=== PATIENT | female | born 1935 | race Caucasian/White ===

== ENCOUNTER 2017-12-28 21:18 | Emergency (ER) | payer MEDICARE, OTHER, SELFPAY ==
[2017-12-28 21:22] VITALS: BP 122/70; PULSE 85; RESP 18; TEMP 36.8; O2SAT 95
--- NOTE | 2017-12-28 22:32 | ED_ITS ---
HPI - Skin/Abscess/Foreign Bdy General Chief complaint: Skin/Abscess/Foreign Body Stated complaint: thinks her left foot is infected Time Seen by Provider: 12/28/17 22:32 Source: patient Mode of arrival: ambulatory Limitations: no limitations History of Present Illness HPI narrative: The patient has peripheral neuropathy. She has had recurrent issues with both feet. She has required [facility] management of right foot infections previously. Two years ago she had surgery on the left foot. She has had recurring infections and ulcer since then. Her is currently tending to a healing ulcer on the plantar surface of the left 1st MTP area. To 3 days ago she developed redness and discomfort in the left 1st and 2nd toes. She has had recurring issues at this site. Today the redness and discomfort started to spread up to the distal and mid foot. She has had purulent discharge from the tip of the 2nd toe. She does not have significant pain. The erythema is in the mid foot, there is no streak running up the leg. She is not diabetic. She has chills but no fever. Related Data Home Medications Medication Instructions Recorded Confirmed amlodipine [Norvasc] PO QDAY #0 11/22/16 benzonatate [Tessalon Perles] 100 mg PO PRN #0 11/22/16 levothyroxine [Synthroid] PO QDAY #0 11/22/16 loratadine [Claritin Liqui-Gel] 10 mg PO QDAYP PRN #0 11/22/16 Previous Rx's Medication Instructions Recorded furosemide [Lasix] 20 mg PO QDAY 3 Days #0 tab 11/22/16 sulfamethoxazole-trimethoprim 1 tab PO Q12H #20 tab 12/29/17 [Bactrim DS] Allergies Allergy/AdvReac Type Severity Reaction Status Date / Time Penicillins [PENICILLINS] Allergy Unknown Unverified 09/23/17 12:27 Review of Systems Constitutional Reports chills and Denies fever(s) Cardiovascular Denies chest pain, Denies irregular heart rhythm, Denies lightheadedness, Denies palpitations, Denies dyspnea, Denies dyspnea on exertion and Denies orthopnea Respiratory Denies cough, Denies dyspnea, Denies dyspnea on exertion and Denies wheezing Gastrointestinal Gastrointestinal: Denies abdominal pain, Denies change in bowel habits, Denies diarrhea, Denies nausea and Denies vomiting Musculoskeletal Reports numbness and Denies tingling Integumentary/Breasts Reports as per HPI, Reports lesions and Reports erythema Neurologic Reports numbness, Denies tingling and Reports other (Peripheral neuropathy.) Endocrine Denies palpitations Allergic/Immunologic Denies wheezing [facility] Medical History Foot ulcer (Acute) Peripheral neuropathy (Acute) Exam Initial Vital Signs Initial Vital Signs: Vital Signs Temperature 98.2 F 12/28/17 21:22 Pulse Rate 85 12/28/17 21:22 Respiratory Rate 18 12/28/17 21:22 Blood Pressure 122/70 H 12/28/17 21:22 Pulse Oximetry 95 12/28/17 21:22 Const General: cooperative, healthy appearing and comfortable Resp Effort & Inspection: normal respiratory effort, able to speak in complete sentences, no respiratory distress and no use of accessory muscles Auscultation: clear to auscultation bilaterally, no rales, no rhonchi and no wheezes Cardio Rate: regular rate Rhythm: regular rhythm Heart Sounds: no click, no gallops, no murmurs and no rubs Pulses: normal peripheral pulses GI Inspection: non-distended Palpation: soft, no hepatosplenomegaly, No guarding, No pulsatile mass and No tender Auscultation: normal bowel sounds Skin General: no rashes or lesions noted (Other than the infected site on the left foot.) Neuro General: alert, awake, oriented x3 and other (Decreased light touch sensation) Extrem General: other (Erythema with warmth to the left 1st and 2nd toes, and up to the lateral midfoot. No lymphangitis. I was able to express pus from the tip of the 2nd toe. A small ulcer has formed there.) Other: The left dorsalis pedis pulse is intact. Capillary refill is intact in the left foot. Course Orders Ordered: ED Orders 12/28/17 22:44 XR foot LT min 3V Stat 12/28/17 23:30 Basic Metabolic Panel Stat Complete Blood Count AUTO DIFF Stat Lactate (Lactic Acid) Stat 12/28/17 23:43 Blood Culture Stat 12/29/17 02:44 Wound Culture and Gram Stain Stat Discontinued Medications Vancomycin HCl 1,500 mg/ (Sodium Chloride) 500 mls @ 333.333 mls/hr IV NOW ONE Stop: 12/28/17 22:47 Last Infusion: 12/29/17 02:15 Dose: 0 mls/hr Admin: 12/29/17 00:26 Dose: 333.333 mls/hr Vital Signs - 8 hr 12/28/17 21:22 12/29/17 00:53 12/29/17 03:23 Temperature 98.2 F Pulse Rate 85 70 73 Respiratory Rate 18 16 Blood Pressure 122/70 H Blood Pressure [Right Arm] 129/43 H 139/51 H Pulse Oximetry 95 97 MDM - Skin/Abscess/Foreign Bdy Medical Records Attestation: I reviewed the patient's medical records. Lab Data Attestation: I reviewed the patient's lab results. Result diagrams: 12/28/17 23:30 12/28/17 23:30 Lab Results 12/28/17 12/28/17 12/28/17 Range/Units 23:30 23:30 23:30 WBC 7.4 (4.5-11.0) X10^3/uL RBC 4.36 (4.0-5.2) X10^6/uL Hgb 13.0 (12.0-16.0) g/dL Hct 38.5 (36-46) % MCV 88.2 (80-100) fL MCH 29.8 (26-34) PG MCHC 33.8 (30-36) % RDW 14.8 (11.6-14.8) % Plt Count 250 (150-400) X10^3/uL Neut % (Auto) 65.7 (50-75) % Lymph % (Auto) 23.1 L (25-40) % [place] % (Auto) 8.6 (3-14) % Eos % (Auto) 2.3 (2-4) % Baso % (Auto) 0.3 (0-2) % Neut # (Auto) 4900 (6185-7542) /uL Sodium 139 (137-145) mmol/L Potassium 3.3 L (3.4-5.1) mmol/L Chloride 99 (98-107) mmol/L Carbon Dioxide 28 (22-32) mmol/L BUN 30 H (7-17) mg/dL Creatinine 1.20 H (0.52-1.04) mg/dL Estimated GFR 43.2 L (>60) mL/min BUN/Creatinine Ratio 25.0 H (6-22) Glucose 91 (80-110) mg/dL Lactate 0.9 (0.7-2.1) mmol/L Calcium 9.0 (8.4-10.2) mg/dL Imaging Data Left foot x-ray: My impression: The x-ray reveals hardware in the 1st metatarsal, and 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 There is no obvious bony injury. MDM Narrative Medical decision making narrative: The erythema and edema in the left foot is significantly better already. I have started her on Septra DS. Discharge Plan Departure Patient Disposition: Home, Self-Care Clinical Impression: Cellulitis of left foot Instructions: DI for Cellulitis -- Adult Activity Restrictions/Additional Instructions: Septra DS 2 times daily as prescribed. Apply warm soaks with Epsom salts to the foot 2 times daily until you have clearly improved. Return here if the foot is significantly worse. Prescriptions: New sulfamethoxazole-trimethoprim [Bactrim DS] 800-160 mg tablet 1 tab PO Q12H Qty: 20 RF: 0 No Action amlodipine [Norvasc] 2.5 mg Tablet PO QDAY Qty: 0 RF: 0 levothyroxine [Synthroid] 25 mcg Tablet PO QDAY Qty: 0 RF: 0 benzonatate [Tessalon Perles] 100 MG capsule 100 mg PO PRNQty: 0 RF: 0 loratadine [Claritin Liqui-Gel] 10 MG capsule 10 mg PO QDAYP PRNQty: 0 RF: 0 furosemide [Lasix] 20 MG tablet 20 mg PO QDAY 3 Days Qty: 0 RF: 0
--- NOTE | 2017-12-28 22:44 | DI.RAD.S_ITS ---
PROCEDURE: XR FOOT LT MIN 3V INDICATIONS: left foot/1st and 2nd toe cellulitis TECHNIQUE: 3 views of the foot were acquired. COMPARISON: [facility], CR, XR FOOT 3VW LT, 01/15/2017, 16:44. [facility], RG, FOOT COMP MIN 3VW (LT), 07/24/2017, 16:58. [facility] [place], CR, XR FOOT 1 OR 2 VIEWS LEFT, 07/30/2017, 13:32. [facility], CR, FOOT 3V LEFT, 11/10/2016, 14:30. FINDINGS: Bones: There is bunionectomy and fusion of the subtalar joint. Noon-acute fracture at the base of the fifth proximal phalanxis noted. No dislocations. No suspicious bony lesions. Generalized osteopenia. Soft tissues: No tibiotalar joint effusion. Achilles tendon appears normal. Soft tissue swelling. IMPRESSION: 1. No bony erosion. Early osteomyelitis may not radiographic findings. If clinical symptoms persist or clinical suspicion for pathology is high, a triple phase bone scan or MRI is suggested for further evaluation. 2. Non-acute fracture at the base of the fifth proximal phalanx. 3. Osteopenia. 4. Post surgical changes. Dictated by: Everett Zheng M.D. on 12/29/2017 at 9:17 Approved by: Everett Zheng M.D. on 12/29/2017 at 9:21
[2017-12-28 23:44] LABS: Add Manual Diff / Slide Review NO; Basophils Percent Auto 0.3 % (0-2); Eosinophils Percent Auto 2.3 % (2-4); Hematocrit 38.5 % (36-46); Lymphocytes Percent Auto 23.1 % (25-40); Mean Corpuscular HGB Conc 33.8 % (30-36); Mean Corpuscular Hemoglobin 29.8 PG (26-34); Mean Corpuscular Volume 88.2 fL (80-100); Monocytes Percent Auto 8.6 % (3-14); Neutrophils Absolute Auto 4900 /uL (3000-5900); Neutrophils Percent Auto 65.7 % (50-75); Platelet Count 250 X10^3/uL (150-400); Red Blood Cell Count 4.36 X10^6/uL (4.0-5.2); Red Cell Distribution Width 14.8 % (11.6-14.8); White Blood Cell Count 7.4 X10^3/uL (4.5-11.0)
[2017-12-28 23:53] LABS: Lactate (Lactic Acid) 0.9 mmol/L (0.7-2.1)
[2017-12-28 23:54] LABS: Blood Urea Nitrogen 30 mg/dL (7-17); Carbon Dioxide 28 mmol/L (22-32); Chloride 99 mmol/L (98-107); Estimated Glomerular Filt Rate 43.2 mL/min (>60); Glucose 91 mg/dL (80-110); HEMOLYSIS < 15 (0-50); Potassium 3.3 mmol/L (3.4-5.1); Sodium 139 mmol/L (137-145)
[2017-12-29] MEDS: VANCOMYCIN 1,500 MG in SODIUM CHLORIDE 0.9% 500 ML 333.333 ML IV (00:26)
[2017-12-29 00:53] VITALS: BP 129/43; PULSE 70; O2SAT 97
[2017-12-29 03:23] VITALS: BP 139/51; PULSE 73; RESP 16
[2017-12-29] MEDS: SULFA/TRIMETH 800/160 (DS) TABLET 1 TAB PO (04:50)
[2017-12-29 04:53] VITALS: BP 127/62; PULSE 66; RESP 18; TEMP 36.4; O2SAT 94
== END 2017-12-29 05:24 | disposition home or self-care (01) ==
PROVIDERS: Emergency Provider Emergency Medicine
DX: L03.116 Cellulitis of left lower limb (principal)
CPT/HCPCS: 36415; 73630; 80048; 83605; 85025; 87040; 87070; 87075; 87205; 96365; 96366; 99283; 99284

== ENCOUNTER 2018-05-06 09:47 | Emergency (ER) | payer MEDICARE, OTHER, SELFPAY ==
[2018-05-06 09:30] VITALS: BP 128/96; PULSE 72; PULSE 79; RESP 20; TEMP 36.6; O2SAT 98
--- NOTE | 2018-05-06 09:50 | ED_ITS ---
HPI - Extremity Problem General Chief complaint: Extremity Problem,Nontraumatic Stated complaint: Hip Pain - Fell in February Time Seen by Provider: 05/06/18 09:48 Source: patient Mode of arrival: EMS Limitations: no limitations History of Present Illness HPI Narrative: The patient is an 82-year-old female who fell several months ago. Did not come to the emergency department at that time because she did not think that she hurt herself. Since then has developed left hip pain. She has seen her primary care doctor was ordered x-rays. These are not available for my review bit patient stated that she was told that there were no fractures. She has also been evaluated by orthopedic spine who have ordered her an MRI of her lumbar spine and left hip. This is scheduled for next week. She states she has been taking Advil for her discomfort. She states that over the past several weeks and especially over the past couple days she has had an increase in the muscle spasms located in her left groin. She states she has no new pain compared to the past several weeks/months however the spasms have become more frequent and more intense. Related Data Home Medications Medication Instructions Recorded Confirmed amlodipine [Norvasc] PO QDAY #0 11/22/16 benzonatate [Tessalon Perles] 100 mg PO PRN #0 11/22/16 levothyroxine [Synthroid] PO QDAY #0 11/22/16 loratadine [Claritin Liqui-Gel] 10 mg PO QDAYP PRN #0 11/22/16 Previous Rx's Medication Instructions Recorded furosemide [Lasix] 20 mg PO QDAY 3 Days #0 tab 11/22/16 sulfamethoxazole-trimethoprim 1 tab PO Q12H #20 tab 12/29/17 [Bactrim DS] cyclobenzaprine 10 mg PO TID PRN #10 tab 05/06/18 hydrocodone-acetaminophen [[place]] 1 tab PO Q4-6H PRN #10 tab 05/06/18 nitrofurantoin monohyd/m-cryst 100 mg PO BID 5 Days #10 cap 05/06/18 [Macrobid] Allergies Allergy/AdvReac Type Severity Reaction Status Date / Time Penicillins [PENICILLINS] Allergy Unknown Verified 05/06/18 10:16 Review of Systems Constitutional Denies fever(s) ENT Ears, Nose, Mouth, and Throat: Denies dizziness Cardiovascular Denies chest pain and Denies dyspnea Respiratory Denies dyspnea Gastrointestinal Gastrointestinal: Denies abdominal pain Genitourinary Denies dysuria Musculoskeletal Reports back pain, Denies myalgias, Denies deformity and Reports arthralgias ( Left hip) Integumentary/Breasts Denies lesions and Denies rash Neurologic Denies confusion and Denies dizziness Psychiatric Denies confusion Hematologic/Lymphatic Denies easy bleeding and Denies easy bruising PFSH Medical History Foot ulcer (Acute) Peripheral neuropathy (Acute) Surgical History S/P lumbar fusion (Acute) Social History marital status: Exam Initial Vital Signs Initial Vital Signs: Vital Signs Temperature 97.9 F 05/06/18 09:30 Pulse Rate 72 05/06/18 09:30 Respiratory Rate 20 05/06/18 09:30 Blood Pressure 128/96 H 05/06/18 09:30 Pulse Oximetry 98 05/06/18 09:30 Const General: cooperative, well developed, well groomed and No acute distress HENMT Head: normal to inspection and normocephalic Resp Effort & Inspection: normal respiratory effort Auscultation: clear to auscultation bilaterally Cardio Rate: regular rate Rhythm: regular rhythm Skin Lesions: no lesions Rashes: no rashes Neuro General: alert, awake and oriented x3 Cognition: normal cognition Speech: speech normal Extrem General: normal to inspection and capillary refill normal Other: Left hip pain tenderness over the greater trochanter over the posterior aspect and over the anterior groin. Does have full range of motion however with flexion of the hip does cause a spasm in the groin. No left knee low left ankle symptoms. Psych Appearance: grossly normal and well kempt Course Orders Ordered: ED Orders 05/06/18 10:45 Urine Culture Stat Urine Microscopic Stat Discontinued Medications Diazepam (Valium) 5 mg PO NOW ONE Stop: 05/06/18 10:09 Last Admin: 05/06/18 10:20 Dose: 5 mg Ketorolac Tromethamine (Toradol) 30 mg IM NOW ONE Stop: 05/06/18 10:09 Last Admin: 05/06/18 10:20 Dose: 30 mg Vital Signs - 8 hr 05/06/18 09:30 05/06/18 11:09 Temperature 97.9 F Pulse Rate 79 69 Pulse Rate [Left Dorsalis Pedis] 72 Respiratory Rate 20 14 Blood Pressure 128/96 H Blood Pressure [Left Arm] 120/55 L Pulse Oximetry 98 100 MDM - Extremity (Nontraumatic) Lab Data Attestation: I reviewed the patient's lab results. Lab Results 05/06/18 Range/Units 10:45 Urine RBC 1-5/hpf (0-5/HPF) Urine WBC 30-100/hpf H (0-5/HPF) Ur Squamous Epith Cells 1-5 /hpf Urine Bacteria Many (>30) H (None) Ur Culture Indicated? Specimen cultured Micro UA Comment Not Reportable Urine Dip Bedside Urine Glucose Negative Bedside Urine Bilirubin - Negative Bedside Urine Ketone - Negative Urine Specific [place] 1.030 Bedside Urine Occult Blood +/- Bedside Urine pH 6.0 Bedside Urine Protein +/- 15 Bedside Urine Urobilinogen - Negative Bedside Urine Nitrite + Positive Bedside Urine Leukocytes +++ 500 Esterase MDM Narrative Medical decision making narrative: Patient does have a nitrite positive urine and states that recently she has had some urinary hesitancy but no burning. No fevers. Will treat with antibiotics. Informed the patient that there was a culture pending. Patient does report some improvement of the muscle spasms in her left hip. She has no new trauma and has had x-rays of her hip in the past. I have low suspicion for new fractures. Will hold on radiologic studies. Will send home with some pain medication and muscle relaxers. She does have a walker at home. Informed her that she needs to be careful about ambulating to avoid falling. With her and her expressed understanding and agreement this plan Discharge Plan Departure Patient Disposition: Home Clinical Impression: UTI (urinary tract infection), Hip pain, left Instructions: DI for Urinary Tract Infection (UTI), How To Perform RICE (Rest, Ice, Compress, Elevate), How to Prevent Falls Activity Restrictions/Additional Instructions: Recommend that you keep all of your scheduled medical appointments to include the MRIs that you have scheduled next week. Take the medication like we discussed. You need to be careful at home to avoid falling. No driving for the next 24 hr. Return to the emergency department for any new or worsening symptoms Prescriptions: New cyclobenzaprine 10 mg tablet 10 mg PO TID PRN (Reason: muscle spasm) Qty: 10 RF: 0 hydrocodone-acetaminophen [[place]] 5-325 mg tablet 1 tab PO Q4-6H PRN (Reason: pain) Qty: 10 RF: 0 nitrofurantoin monohyd/m-cryst [Macrobid] 100 mg capsule 100 mg PO BID 5 Days Qty: 10 RF: 0 No Action amlodipine [Norvasc] 2.5 mg Tablet PO QDAY Qty: 0 RF: 0 levothyroxine [Synthroid] 25 mcg Tablet PO QDAY Qty: 0 RF: 0 benzonatate [Tessalon Perles] 100 MG capsule 100 mg PO PRNQty: 0 RF: 0 loratadine [Claritin Liqui-Gel] 10 MG capsule 10 mg PO QDAYP PRNQty: 0 RF: 0 furosemide [Lasix] 20 MG tablet 20 mg PO QDAY 3 Days Qty: 0 RF: 0 sulfamethoxazole-trimethoprim [Bactrim DS] 800-160 mg tablet 1 tab PO Q12H Qty: 20 RF: 0
[2018-05-06] MEDS: diazePAM 5 MG TABLET PO (10:20)
[2018-05-06] MEDS: KETOROLAC 60 MG/2 ML VIAL 30 MG IM (10:20)
[2018-05-06 11:05] LABS: Bacteria Urine Many (>30); RBC Urine 1-5/HPF (0-5/HPF); Squamous Epithelial Cell Urine 1-5 /HPF; WBC Urine 30-100/HPF (0-5/HPF)
[2018-05-06 11:06] LABS: Culture Indicated Urine Specimen Cultured
[2018-05-06 11:09] VITALS: BP 120/55; PULSE 69; RESP 14; O2SAT 100
[2018-05-06 11:30] VITALS: BP 116/67; PULSE 77; RESP 20; O2SAT 96
[2018-05-06 11:42] VITALS: BP 116/67; PULSE 77; RESP 20; O2SAT 96
== END 2018-05-06 11:49 | disposition home or self-care (01) ==
PROVIDERS: Emergency Provider Emergency Medicine; PCP Specialist
DX: N39.0 Urinary tract infection, site not specified (principal); M25.552 Pain in left hip
CPT/HCPCS: 81003; 81015; 87077; 87086; 87186; 96372; 99283; J1885

== ENCOUNTER → 2018-05-12 13:08 | Outpatient (CLI) | payer MEDICARE, OTHER, SELFPAY ==
--- NOTE | 2018-05-12 | DI.MRI.S_ITS ---
PROCEDURE: MR HIP LT WO CON INDICATIONS: RADICULOPATHY LUMBAR REGION TECHNIQUE: Noncontrast coronal T1 spin echo and STIR through the bony pelvis. Coronal and axial T2 fast spin echo with fat saturation, sagittal T1 spin echo, and oblique axial T2 fast spin echo with fat saturation through the hip. COMPARISON: [facility], MR, MR LUMBAR SPINE WO/W CON, 05/12/2018, 14:03. FINDINGS: Image quality: Excellent. Bones and joints: Bone marrow of the pelvic ring and proximal femurs show normal signal throughout. No intraosseous lesions or fractures. No avascular necrosis of the femoral heads. Lower lumbar degenerative disc disease and spinal fixation hardware artifact Tendons and ligaments: The gluteus medius and minimus tendons appear intact, without associated muscle atrophy. The nearby proximal iliotibial band also appears intact. The iliopsoas tendon appears intact, without adjacent bursal fluid collections or evidence for impingement syndrome. The origin of the hamstring tendon is intact at the ischial tuberosity, as well as the associated sacrotuberous ligament. The straight and reflected heads of the rectus femoris muscle origin appear intact, as well as the conjoint tendon. The ligamentum teres appears intact where visualized. Labrum and cartilage: The acetabular labrum appears intact in the absence of intra-articular contrast. Cartilage surface of the femoral head appears of normal thickness. The alpha angle of the femur is within normal limits at less than 55 degrees. High-grade probably partial rupture of the left iliopsoas musculotendinous junction. Prominent appearance of stump/retracted fibers is seen at the level of the femoral head, image 24 series 3. There are some intact fibers seen at the insertion at the lesser trochanter although intrasubstance signal change and adjacent soft tissue edema is present. There is also marked diffuse edema and irregularity of the visualized left iliacas muscle. IMPRESSION: Severe, diffuse edema throughout the left iliopsoas muscle, with high-grade partial rupture at the musculotendinous junction. Dictated by: Akhil Holcomb M.D. on 05/12/2018 at 15:51 Approved by: Akhil Holcomb M.D. on 05/12/2018 at 16:01
--- NOTE | 2018-05-12 | DI.MRI.S_ITS ---
PROCEDURE: MR LUMBAR SPINE WO/W CON INDICATIONS: RADICULOPATHY LUMBAR REGION TECHNIQUE: Noncontrast sagittal T1 spin echo and T2 fast spin echo, sagittal STIR, axial T1 and T2 fast spin echo through the lumbar spine. In cases with scoliosis, additional coronal T2 fast spin echo may be performed. After the administration of contrast, sagittal and axial T1 spin echo with fat saturation through the lumbar spine. COMPARISON: [facility], , L-SPINE W&WO CONTRAST, 09/29/2013, 12:46. FINDINGS: Image quality: Excellent. Alignment and curvature: Posterior fusion from L3-L5 is noted. There is levoconvex scoliotic curvature with apex at L2-3. There is trace retrolisthesis of L1 on L2, grade retrolisthesis of L2 on L3, trace anterolisthesis of L4 on L5 and trace retrolisthesis of L5 on S1. Marrow: Marrow is of normal overall signal. No acute vertebral body compression fractures. No suspicious marrow enhancement. Spinal cord: Conus medullaris terminates at the L2 level. Visualized spinal cord demonstrates normal signal, without suspicious enhancement. Paraspinous soft tissues: No paravertebral masses or abnormal enhancement. Hepatic focus of increased T2 signal within the posterior right hepatic lobe suggestive of cyst is again noted. There is mildly increased in size currently measuring 21 mm x 16 mm. It previously measured 19 x 13 mm. Discs: Severe desiccation is present throughout the lumbar spine. T12-L1: Mild disc bulge with moderate to severe spinal stenosis. There is severe bilateral foraminal narrowing with facet and ligamentum flavum hypertrophy. Mild interval progression. L1-L2: Mild disc bulge with mild to moderate spinal stenosis. There is mild epidural lipomatosis. Prominent facet and ligamentum flavum hypertrophy are present. There is moderate to severe left and severe right foraminal narrowing, slightly progressive. Facet and ligamentum flavum hypertrophy are present. L2-L3: Mild disc bulge with moderate to severe spinal stenosis, unchanged. There is severe bilateral foraminal narrowing, progressive compared to prior exam with facet and ligamentum flavum hypertrophy. L3-L4: Postsurgical changes are present. There is no spinal stenosis. Posterior surgical defect with fluid is present without interval change. This likely represents a postoperative seroma. There is a dependent clumped appearance of the nerve roots, and new compared to prior exam. There is moderate to severe bilateral foraminal narrowing, slightly progressive with facet and ligamentum flavum hypertrophy. L4-L5: Postsurgical changes are present. There is a flattened appearance of the nerve roots in a peripheral dependent location, new compared to prior exam. Moderate to severe left and moderate right foraminal narrowing is present demonstrating interval progression. L5-S1: Postsurgical changes are present. There is a flattened appearance of the nerve roots in a peripheral dependent location, new compared to prior exam. There is severe left and moderate to severe right foraminal narrowing with facet and ligamentum flavum hypertrophy. IMPRESSION: 1. Postoperative changes as above. 2. Interval appearance of flattened dependent appearance of clumped nerve roots within the lower lumbar spine as above. 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 3. Multilevel foraminal narrowing secondary to scoliotic curvature as well as facet/ligamentum flavum arthropathy. 4. Multilevel degenerative changes are present with areas demonstrating interval progression as above. Dictated by: Inna Galloway M.D. on 05/12/2018 at 16:54 Approved by: Inna Galloway M.D. on 05/12/2018 at 17:04
== END ==
PROVIDERS: PCP Specialist; Visit Provider Orthopaedic Surgery
DX: M51.16 Intervertebral disc disorders with radiculopathy, lumbar region (principal); R60.0 Localized edema; M48.061 Spinal stenosis, lumbar region without neurogenic claudication; M48.07 Spinal stenosis, lumbosacral region; M41.86 Other forms of scoliosis, lumbar region; Z98.1 Arthrodesis status
CPT/HCPCS: 72158; 73721; A9579

== ENCOUNTER 2018-09-18 12:21 | Emergency (ER) | payer MEDICARE, OTHER, SELFPAY ==
[2018-09-18 12:32] VITALS: BP 151/97; PULSE 78; RESP 14; TEMP 36.4; O2SAT 98
--- NOTE | 2018-09-18 12:42 | DI.RAD.S_ITS ---
PROCEDURE: XR FOOT LT MIN 3V INDICATIONS: atraumatic foot pain TECHNIQUE: 3 views of the foot were acquired. COMPARISON: None. FINDINGS: Bones: Plate-screw fixation of the calcaneus and screw fixation of the first metatarsal. Hardware appears intact. There is expected postoperative alignment. Diffuse hindfoot and mid foot degenerative changes. Diffuse interphalangeal joint degeneration. No definite acute fracture seen Soft tissues: No tibiotalar joint effusion. Achilles tendon appears normal. IMPRESSION: No definite acute fracture. Postoperative changes as above. Dictated by: Akhil Holcomb M.D. on 09/18/2018 at 14:01 Approved by: Akhil Holcomb M.D. on 09/18/2018 at 14:03
[2018-09-18 13:02] LABS: Add Manual Diff / Slide Review NO; Basophils Absolute Auto 100 /uL (0-100); Basophils Percent Auto 0.9 % (0-2); Eosinophils Absolute Auto 200 /uL (0-450); Eosinophils Percent Auto 2.2 % (2-4); Hematocrit 41.8 % (36-46); Hemoglobin 13.6 g/dL (12.0-16.0); Lymphocytes Absolute Auto 1600 /uL (1100-4500); Mean Corpuscular HGB Conc 32.6 % (30-36); Mean Corpuscular Hemoglobin 27.9 PG (26-34); Mean Corpuscular Volume 85.6 fL (80-100); Monocytes Absolute Auto 700 /uL (0-900); Monocytes Percent Auto 7.5 % (3-14); Neutrophils Absolute Auto 6200 /uL (1500-7000); Neutrophils Percent Auto 71.4 % (50-75); Platelet Count 295 X10^3/uL (150-400); Red Blood Cell Count 4.88 X10^6/uL (4.0-5.2); Red Cell Distribution Width 15.7 % (11.6-14.8); White Blood Cell Count 8.7 X10^3/uL (4.5-11.0)
[2018-09-18 13:15] LABS: Alanine Aminotransferase 28 IU/L (9-52); Albumin 4.3 g/dL (3.5-5.0); Albumin Globulin Ratio 1.5 (1.0-2.8); Alkaline Phosphatase 99 U/L (38-126); Aspartate Aminotransferase 23 IU/L (14-36); BUN Creatinine Ratio 22.5 (6-22); Bilirubin Total 0.5 mg/dL (0.2-1.3); Blood Urea Nitrogen 18 mg/dL (7-17); Carbon Dioxide 31 mmol/L (22-32); Chloride 100 mmol/L (98-107); Estimated Glomerular Filt Rate > 60.0 mL/min (>60); Globulin 2.8 g/dL (1.7-4.1); Glucose 95 mg/dL (80-110); HEMOLYSIS < 15 (0-50); Potassium 3.8 mmol/L (3.4-5.1); Sodium 139 mmol/L (137-145); Total Protein 7.1 g/dL (6.3-8.2); Uric Acid 6.6 mg/dL (2.5-6.2)
[2018-09-18 15:11] VITALS: BP 147/85; PULSE 73; O2SAT 100
--- NOTE | 2018-09-18 15:21 | ED_ITS ---
HPI - Extremity Problem <OSCAR Gillette - Last Filed: 09/18/18 15:24> General Chief complaint: Extremity Problem,Nontraumatic Stated complaint: Broken toe Big Toe LT Time Seen by Provider: 09/18/18 14:25 Source: patient and family Mode of arrival: ambulatory Limitations: no limitations History of Present Illness HPI Narrative: Patient is an 82-year-old female nonsmoker who presents with her for chief complaint of left great toe pain and redness. She states it started overnight. She has no fevers nausea vomiting. she states that she has not had any trauma to the area falls or otherwise. She states she has broken that toe previously. She states the number for other toes hurt. She states that it hurts mostly at the base of the left great toe. Related Data Home Medications Medication Instructions Recorded Confirmed amlodipine [Norvasc] PO QDAY #0 11/22/16 benzonatate [Tessalon Perles] 100 mg PO PRN #0 11/22/16 levothyroxine [Synthroid] PO QDAY #0 11/22/16 loratadine [Claritin Liqui-Gel] 10 mg PO QDAYP PRN #0 11/22/16 Previous Rx's Medication Instructions Recorded furosemide [Lasix] 20 mg PO QDAY 3 Days #0 tab 11/22/16 sulfamethoxazole-trimethoprim 1 tab PO Q12H #20 tab 12/29/17 [Bactrim DS] cyclobenzaprine 10 mg PO TID PRN #10 tab 05/06/18 hydrocodone-acetaminophen [Saxton] 1 tab PO Q4-6H PRN #10 tab 05/06/18 colchicine See Rx Instructions .ROUTE 09/18/18 .COMPLEX #3 cap naproxen 500 mg PO BID PRN #20 tab 09/18/18 Allergies Allergy/AdvReac Type Severity Reaction Status Date / Time Penicillins [PENICILLINS] Allergy Unknown Verified 05/06/18 10:16 Review of Systems <OSCAR Gillette - Last Filed: 09/18/18 15:24> Review of Systems GENERAL: Denies chills, fatigue, malaise, fever, sweats. HEENT: Denies sinus pain, ear pain, sore throat, difficulty swallowing, dizziness. RESPIRATORY: Denies dyspnea, cough, wheezing, hemoptysis, sputum. CARDIOVASCULAR: Denies chest pain, palpitations, orthopnea, edema, GASTROINTESTINAL: Denies nausea, vomiting, abdominal pain, diarrhea, constipatio n, melena. : Denies dysuria, frequency, incontinence, hematuria, urinary retention. MUSCULOSKELETAL: See HPI SKIN: See HPI NEUROLOGIC: Denies weakness, headache, numbness, change in speech, confusion, seizures, incoordination. PSYCHIATRIC: No concerning psychosocial issues. 12 point review of systems is negative except for those stated above PFSH <OSCAR Gillette - Last Filed: 09/18/18 15:24> Medical History Foot ulcer (Acute) Peripheral neuropathy (Acute) Surgical History (Updated 05/06/18 @ 10:37 by Jurgen Ruiz DO) S/P lumbar fusion (Acute) Social History marital status: Smoking Status: Never smoker Social History marital status: Smoking Status: Never smoker Exam <OSCAR Gillette - Last Filed: 09/18/18 15:24> Narrative Exam Narrative: GENERAL: This is a well-nourished, well-developed patient, in no acute distress HEAD: Atraumatic. Normocephalic. No temporal or scalp tenderness. EYES: Pupils equal round and reactive. Extraocular motions intact. No scleral icterus. No injection or drainage. ENT: Nose without bleeding, purulent drainage or septal hematoma. Throat without erythema, tonsillar hypertrophy or exudate. Uvula midline. Airway patent. NECK: Trachea midline. No JVD or lymphadenopathy. Supple, nontender, no meningeal signs. CARDIOVASCULAR: Regular rate and rhythm without murmurs, gallops, or rubs. RESPIRATORY: Clear to auscultation. Breath sounds equal bilaterally. No wheezes, rales, or rhonchi. GASTROINTESTINAL: Abdomen soft, non-tender, nondistended. No hepato- splenomegaly, or palpable masses. No guarding. EXTREMITIES: Pain to palpation left great toe. Capillary refill less than 2 seconds. BACK: Nontender without deformity or crepitance. No flank tenderness. NEURO: AOx3. SKIN: Diffuse slight erythema noted left great toe. No erythema extending up the foot. Initial Vital Signs Initial Vital Signs: Vital Signs Temperature 97.5 F L 09/18/18 12:32 Pulse Rate 78 09/18/18 12:32 Respiratory Rate 14 09/18/18 12:32 Blood Pressure 151/97 H 09/18/18 12:32 Pulse Oximetry 98 09/18/18 12:32 <Laila Tabor DO - Last Filed: 09/18/18 18:11> Initial Vital Signs Initial Vital Signs: Vital Signs Temperature 97.5 F L 09/18/18 12:32 Pulse Rate 78 09/18/18 12:32 Respiratory Rate 14 09/18/18 12:32 Blood Pressure 151/97 H 09/18/18 12:32 Pulse Oximetry 98 09/18/18 12:32 Course <OSCAR Gillette - Last Filed: 09/18/18 15:24> Orders Ordered: ED Orders 09/18/18 12:11 Complete Blood Count AUTO DIFF Stat Comprehensive Metabolic Panel Stat Uric Acid Stat 09/18/18 12:42 XR foot LT min 3V Stat Vital Signs - 8 hr 09/18/18 12:32 09/18/18 15:11 Temperature 97.5 F L Pulse Rate 78 73 Respiratory Rate 14 Blood Pressure 151/97 H 147/85 H Pulse Oximetry 98 100 <Laila Tabor DO - Last Filed: 09/18/18 18:11> Orders Ordered: ED Orders 09/18/18 12:11 Complete Blood Count AUTO DIFF Stat Comprehensive Metabolic Panel Stat Uric Acid Stat 09/18/18 12:42 XR foot LT min 3V Stat Vital Signs - 8 hr 09/18/18 12:32 09/18/18 15:11 Temperature 97.5 F L Pulse Rate 78 73 Respiratory Rate 14 Blood Pressure 151/97 H 147/85 H Pulse Oximetry 98 100 MDM - Extremity (Nontraumatic) <OSCAR Gillette - Last Filed: 09/18/18 15:24> Lab Data Attestation: I reviewed the patient's lab results. Result diagrams: 09/18/18 12:11 09/18/18 12:11 Lab Results 09/18/18 09/18/18 Range/Units 12:11 12:11 WBC 8.7 (4.5-11.0) X10^3/uL RBC 4.88 (4.0-5.2) X10^6/uL Hgb 13.6 (12.0-16.0) g/dL Hct 41.8 (36-46) % MCV 85.6 (80-100) fL MCH 27.9 (26-34) PG MCHC 32.6 (30-36) % RDW 15.7 H (11.6-14.8) % Plt Count 295 (150-400) X10^3/uL Neut % (Auto) 71.4 (50-75) % Lymph % (Auto) 18.0 L (25-40) % Gilliam % (Auto) 7.5 (3-14) % Eos % (Auto) 2.2 (2-4) % Baso % (Auto) 0.9 (0-2) % Neut # (Auto) 6200 (7249-7415) /uL Lymph # (Auto) 1600 (4700-0813) /uL Gilliam # (Auto) 700 (0-900) /uL Eos # (Auto) 200 (0-450) /uL Baso # (Auto) 100 (0-100) /uL Sodium 139 (137-145) mmol/L Potassium 3.8 (3.4-5.1) mmol/L Chloride 100 (98-107) mmol/L Carbon Dioxide 31 (22-32) mmol/L BUN 18 H (7-17) mg/dL Creatinine 0.80 (0.52-1.04) mg/dL Estimated GFR > 60.0 (>60) mL/min BUN/Creatinine Ratio 22.5 H (6-22) Glucose 95 (80-110) mg/dL Uric Acid 6.6 H (2.5-6.2) mg/dL Calcium 9.0 (8.4-10.2) mg/dL Total Bilirubin 0.5 (0.2-1.3) mg/dL AST 23 (14-36) IU/L ALT 28 (9-52) IU/L Alkaline Phosphatase 99 (38-126) U/L Total Protein 7.1 (6.3-8.2) g/dL Albumin 4.3 (3.5-5.0) g/dL Globulin 2.8 (1.7-4.1) g/dL Albumin/Globulin Ratio 1.5 (1.0-2.8) Imaging Data foot xray : Radiologist's impression: [address] [address] XRay Report Signed Patient: Noel Fernández HMR#: [id number] : 8Acct:[id number] Age/Sex: 82 / FDate of Service: 09/18/18 Loc: ED Accession Number: [id number] Procedure: XR foot LT min 3V Ordering Provider: Laila HallP-BC PROCEDURE: XR FOOT LT MIN 3V INDICATIONS: atraumatic foot pain TECHNIQUE: 3 views of the foot were acquired. COMPARISON: None. FINDINGS: Bones: Plate-screw fixation of the calcaneus and screw fixation of the first metatarsal. Hardware appears intact. There is expected postoperative alignment. Diffuse hindfoot and mid foot degenerative changes. Diffuse interphalangeal joint degeneration. No definite acute fracture seen Soft tissues: No tibiotalar joint effusion. Achilles tendon appears normal. IMPRESSION: No definite acute fracture. Postoperative changes as above. Dictated by: Akhil Holcomb M.D. on 09/18/2018 at 14:01 Approved by: Akhil Holcomb M.D. on 09/18/2018 at 14:[address] [facility] Narrative Medical decision making narrative: The patient is an 82-year-old female who presents with a chief complaint of toe pain that is nontraumatic. Exam is concerning for gout. She does not have an elevated white blood cell count, but does have an elevated uric acid. Thus I am treating her for gout and starting her on colchicine as well as naproxen. I encouraged her to follow up with her primary care provider in the next few days. Discussed coming back to the emergency department for acute concerns such as worsening, vomiting etc. Patient has been no questions or concerns upon discharge. <Laila Tabor DO - Last Filed: 09/18/18 18:11> Lab Data Lab Results 09/18/18 09/18/18 Range/Units 12:11 12:11 WBC 8.7 (4.5-11.0) X10^3/uL RBC 4.88 (4.0-5.2) X10^6/uL Hgb 13.6 (12.0-16.0) g/dL Hct 41.8 (36-46) % MCV 85.6 (80-100) fL MCH 27.9 (26-34) PG MCHC 32.6 (30-36) % RDW 15.7 H (11.6-14.8) % Plt Count 295 (150-400) X10^3/uL Neut % (Auto) 71.4 (50-75) % Lymph % (Auto) 18.0 L (25-40) % Gilliam % (Auto) 7.5 (3-14) % Eos % (Auto) 2.2 (2-4) % Baso % (Auto) 0.9 (0-2) % Neut # (Auto) 6200 (3085-9157) /uL Lymph # (Auto) 1600 (2027-4535) /uL Gilliam # (Auto) 700 (0-900) /uL Eos # (Auto) 200 (0-450) /uL Baso # (Auto) 100 (0-100) /uL Sodium 139 (137-145) mmol/L Potassium 3.8 (3.4-5.1) mmol/L Chloride 100 (98-107) mmol/L Carbon Dioxide 31 (22-32) mmol/L BUN 18 H (7-17) mg/dL Creatinine 0.80 (0.52-1.04) mg/dL Estimated GFR > 60.0 (>60) mL/min BUN/Creatinine Ratio 22.5 H (6-22) Glucose 95 (80-110) mg/dL Uric Acid 6.6 H (2.5-6.2) mg/dL Calcium 9.0 (8.4-10.2) mg/dL Total Bilirubin 0.5 (0.2-1.3) mg/dL AST 23 (14-36) IU/L ALT 28 (9-52) IU/L Alkaline Phosphatase 99 (38-126) U/L Total Protein 7.1 (6.3-8.2) g/dL Albumin 4.3 (3.5-5.0) g/dL Globulin 2.8 (1.7-4.1) g/dL Albumin/Globulin Ratio 1.5 (1.0-2.8) Discharge Plan Departure Patient Disposition: Home Clinical Impression: Gout attack Qualifiers: Gout site: toe Gout etiology: unspecified cause Laterality: left Qualified Code(s): M10.9 - Gout, unspecified Discharge Date/Time: 09/18/18 15:12 Interventions: ED Discharge Assessment Last Done: 09/18/18 15:11 Instructions: Gout (Alternative Therapy), DI for Gout, Higher Vitamin C Intake Associated With Lower Risk of Gout Activity Restrictions/Additional Instructions: Your uric acid level is high and her exam is consistent with gout. I am starting on colchicine for gout. I am starting you on naproxen for pain. Do not combine this with any other NSAIDs such as ibuprofen.please follow-up with your primary care provider in a few days. Please monitor for fever, concern of heart attack or stroke could be evaluated if any of these occur. Please follow up with your primary care provider as we discussed and come back to emergency department for any acute needs. Prescriptions: New naproxen 500 mg tablet 500 mg PO BID PRN (Reason: pain) Qty: 20 RF: 0 colchicine 0.6 mg capsule See Rx Instructions .ROUTE .COMPLEX Qty: 3 RF: 0 No Action amlodipine [Norvasc] 2.5 mg Tablet PO QDAY Qty: 0 RF: 0 levothyroxine [Synthroid] 25 mcg Tablet PO QDAY Qty: 0 RF: 0 benzonatate [Tessalon Perles] 100 MG capsule 100 mg PO PRNQty: 0 RF: 0 loratadine [Claritin Liqui-Gel] 10 MG capsule 10 mg PO QDAYP PRNQty: 0 RF: 0 furosemide [Lasix] 20 MG tablet 20 mg PO QDAY 3 Days Qty: 0 RF: 0 sulfamethoxazole-trimethoprim [Bactrim DS] 800-160 mg tablet 1 tab PO Q12H Qty: 20 RF: 0 cyclobenzaprine 10 mg tablet 10 mg PO TID PRN (Reason: muscle spasm) Qty: 10 RF: 0 hydrocodone-acetaminophen [Saxton] 5-325 mg tablet 1 tab PO Q4-6H PRN (Reason: pain) Qty: 10 RF: 0 Referrals: Dwight Tovar MD [Primary Care Provider] - <Laila Tabor DO - Last Filed: 09/18/18 18:11> Cosign ED Attending Emiliaature Attestation: I was immediately available in the department for consultation. This documentation has been reviewed and I agree with assessment and plan. Supervised by Laila Tabor, DO
== END 2018-09-18 15:12 | disposition home or self-care (01) ==
PROVIDERS: Emergency Provider Nurse Practitioner Family; PCP Specialist
DX: M10.9 Gout, unspecified (principal); M79.675 Pain in left toe(s)
CPT/HCPCS: 36415; 73630; 80053; 84550; 85025; 99282; 99284